=== PATIENT | male | born 1965 | race African-American/Black ===

== ENCOUNTER 2018-02-28 09:12 | Inpatient (IN) | payer OTHER ==
[~2018-02-28] VITALS: Ht 190.5 cm; Wt 127.0 kg
[2018-02-28] MEDS ORDERED: IPRATROPIUM BROMIDE (0.02%) 0.5MG/2.5ML NEB HHN STA (09:22)
[2018-02-28] MEDS ORDERED: METHYLPREDNISOLONE SOD SUCC 125 MG/2 ML VIAL IV STA (09:22)
[2018-02-28] MEDS ORDERED: ALBUTEROL (0.083%) 2.5MG/3ML NEB ONE (09:29)
[2018-02-28] MEDS ORDERED: IPRATROPIUM BROMIDE (0.02%) 0.5MG/2.5ML NEB ONE (09:30)
[2018-02-28] MEDS ORDERED: ALBUTEROL (0.083%) 2.5MG/3ML NEB HHN SCH (09:30)
[2018-02-28] MEDS ORDERED: MAGNESIUM 2 G PREMIX 50 ML IV ONE (09:30)
[2018-02-28 09:55] LABS: CHLORIDE 99 mEq/L (98-107)
[2018-02-28 09:57] LABS: BG DEOXYHEMOGLOBIN 0.4 % (0.0-5.0); BG FRACTION INSPIRED OXYGEN 50; BG HCO3 ACT 23.9 mmol/L (22.0-26.0); BG OXYGEN SATURATION 99.6 % (92.0-98.5); BG OXYHEMOGLOBIN 98.6 % (94.0-97.0); BG PCO2 40.4 mmHg (35.0-45.0); BG PH 7.389 (7.350-7.450); BG PO2 219.5 mmHg (75.0-100.0); BG SAMPLE SITE RIGHT RADIAL; BG TOTAL HEMOGLOBIN 9.7 g/dL (12.0-18.0)
[2018-02-28 10:04] LABS: BASOPHILS % 0.4 % (0.0-2.0); EOSINOPHILS % 1.6 % (0.0-5.0); HEMATOCRIT. 28.8 % (42.0-52.0); HEMOGLOBIN. 9.1 g/dL (14.0-18.0); LYMPHOCYTES % 34.3 % (20.0-50.0); MEAN CORPUSCULAR HEMOGLOBIN 28.8 pg (28.0-32.0); MEAN PLATELET VOLUME 8.6 fl (7.4-10.4); MONOCYTES % 10.5 % (2.0-8.0); NEUTROPHILS % 53.2 % (40.0-76.0); PLATELET 258 x1000/uL (130-400); RED BLOOD CELL COUNT 3.17 mill/uL (4.7-6.1); RED CELL DISTRIBUTION WIDTH 18.9 % (11.6-14.6)
[2018-02-28] MEDS ORDERED: MORPHINE SULFATE 4 MG/ML CPJ (NOT FOR IM USE) IV ONE (11:45)
[2018-02-28] MEDS ORDERED: GUAIFENESIN 200MG/10ML SUGAR FREE UDC PO PRN (12:00)
[2018-02-28] MEDS ORDERED: LORAZEPAM 2MG/ML CPJ IV PRN (12:00)
[2018-02-28] MEDS ORDERED: ENOXAPARIN 40MG/0.4ML SYR SUBCUT SCH (12:00)
[2018-02-28] MEDS ORDERED: DOCUSATE SODIUM 100MG CAPSULE PO PRN (12:00)
[2018-02-28] MEDS ORDERED: ACETAMINOPHEN 325MG TABLET PO PRN (12:00)
[2018-02-28] MEDS ORDERED: CLONIDINE 0.1MG TABLET PO PRN (12:00)
[2018-02-28] MEDS ORDERED: MAGNESIUM/ALUMINUM HYDROXIDE/SIMETHICONE 30ML UDC PO PRN (12:00)
[2018-02-28] MEDS ORDERED: DIPHENHYDRAMINE 50MG/ML VIAL IV PRN (12:00)
[2018-02-28] MEDS ORDERED: IPRATROPIUM/ALBUTEROL 0.5-3(2.5)MG/3ML NEB INH PRN (12:00)
[2018-02-28] MEDS: MORPHINE SULFATE 4 MG/ML CPJ (NOT FOR IM USE) IV PRN ×3 (14:09→22:31)
[2018-02-28] MEDS: ONDANSETRON HCL 4MG/2ML INJ IV PRN ×2 (14:09→18:14)
[2018-02-28] MEDS: HYDROCODONE/ACETAMINOPHEN 5/325MG TABLET PO PRN ×2 (14:09→18:14)
[2018-02-28 21:29] LABS: CLARITY URINE CLOUDY (CLEAR); COLOR URINE YELLOW (YELLOW); KETONES URINE NEGATIVE (NEGATIVE); LEUKOCYTE ESTERASE URINE 1+ (NEGATIVE); NITRITE URINE NEGATIVE (NEGATIVE); OCCULT BLOOD URINE 1+ (NEGATIVE); PROTEIN URINE 4+ (NEGATIVE); UROBILINOGEN URINE 0.2 E.U./dL (0.2-1.0)
[2018-02-28 21:51] LABS: *AMPHETAMINES SCREEN URINE NEGATIVE (NEGATIVE); *BARBITURATES SCREEN URINE NEGATIVE (NEGATIVE); *BENZODIAZEPINES SCREEN URINE NEGATIVE (NEGATIVE); *COCAINE SCREEN URINE NEGATIVE (NEGATIVE)
[2018-02-28 21:52] LABS: CANNABINOID URINE SCREEN NEGATIVE (NEGATIVE); METHADONE URINE SCREEN NEGATIVE (NEGATIVE); OPIATES URINE SCREEN PRESUMTIVE POSITIVE (NEGATIVE); PHENCYCLIDINE URINE SCREEN NEGATIVE (NEGATIVE)
[2018-02-28 22:05] VITALS: BP 178/75
[2018-02-28] MEDS ORDERED: NA PHOS,M-B/NA PHOS,DI-BA ENEMA 118ML PR PRN (22:30)
[2018-02-28] MEDS: HYDRALAZINE HCL 50MG TABLET PO SCH (22:30)
[2018-02-28] MEDS: LOSARTAN POTASSIUM 50 MG TABLET PO SCH (22:30)
[2018-02-28] MEDS: AMLODIPINE 5MG TABLET PO SCH (22:30)
[2018-02-28] MEDS: ENOXAPARIN 30MG/0.3ML SYR SUBCUT SCH (23:26)
[2018-02-28] MEDS ORDERED: EPOETIN ALFA 10000UNITS/ML VIAL SUBCUT SCH (23:30)
[2018-02-28] MEDS ORDERED: ACETYLCYSTEINE 100MG/ML 10% VIAL 4ML INH SCH (23:45)
[2018-02-28] MEDS ORDERED: FURO-152 PO (23:48)
[2018-02-28] MEDS ORDERED: HYDR4TAB4 PO (23:49)
[2018-02-28] MEDS ORDERED: INSU100I28 SQ (23:50)
[2018-02-28] MEDS ORDERED: LANTUSUD SUBCUT (23:51)
[2018-03-01] VITALS (8 sets, daily range): BP systolic 122–180; BP diastolic 59–94
[2018-03-01] MEDS ORDERED: HEPARIN SODIUM 1,000 UNIT/1ML VIAL IV NR (01:30)
[2018-03-01] MEDS: ONDANSETRON HCL 4MG/2ML INJ IV PRN (02:11)
[2018-03-01] MEDS: MORPHINE SULFATE 4 MG/ML CPJ (NOT FOR IM USE) IV PRN (02:24)
[2018-03-01] MEDS: IPRATROPIUM/ALBUTEROL 0.5-3(2.5)MG/3ML NEB HHN SCH ×5 (04:16→21:14)
[2018-03-01] MEDS ORDERED: HYDROMORPHONE HCL 4MG TABLET PO PRN (06:00)
[2018-03-01] MEDS ORDERED: DEXTROSE 50% WATER 50ML SYRINGE IV PRN (06:00)
[2018-03-01] MEDS: BLOOD SUGAR DIAGNOSTIC STRIP TEST SCH ×4 (06:24→21:00)
[2018-03-01] MEDS: HYDRALAZINE HCL 50MG TABLET PO SCH ×3 (06:28→21:13)
[2018-03-01] MEDS: INSULIN LISPRO 100 UNITS/ML SUBCUT SCH ×4 (06:31→21:17)
[2018-03-01] MEDS ORDERED: NON FORMULARY PATIENT HOME MED XX PRN (08:00)
[2018-03-01] MEDS ORDERED: POTASSIUM CHLORIDE 20MEQ TABLET SR PO ONE (08:15)
[2018-03-01] MEDS ORDERED: POTASSIUM CHLORIDE 20MEQ TABLET SR PO NR (08:30)
[2018-03-01] MEDS: LOSARTAN POTASSIUM 50 MG TABLET PO SCH ×2 (08:42→20:58)
[2018-03-01] MEDS: ENOXAPARIN 30MG/0.3ML SYR SUBCUT SCH ×2 (08:42→20:59)
[2018-03-01] MEDS: AMLODIPINE 5MG TABLET PO SCH ×2 (08:42→20:58)
[2018-03-01] MEDS ORDERED: ASPIRIN 81MG EC TABLET PO SCH (09:00)
[2018-03-01 10:36] LABS: BASOPHILS % 0.4 % (0.0-2.0); EOSINOPHILS % 0.5 % (0.0-5.0); HEMATOCRIT. 26.5 % (42.0-52.0); HEMOGLOBIN. 8.4 g/dL (14.0-18.0); LYMPHOCYTES % 29.6 % (20.0-50.0); MEAN CORPUSCULAR HEMOGLOBIN 28.9 pg (28.0-32.0); MEAN CORPUSCULAR VOLUME 90.9 fL (80.0-94.0); MEAN PLATELET VOLUME 8.5 fl (7.4-10.4); MONOCYTES % 11.7 % (2.0-8.0); NEUTROPHILS % 57.8 % (40.0-76.0); PLATELET 245 x1000/uL (130-400); RED BLOOD CELL COUNT 2.92 mill/uL (4.7-6.1); RED CELL DISTRIBUTION WIDTH 18.6 % (11.6-14.6)
[2018-03-01 11:23] LABS: CHLORIDE 101 mEq/L (98-107)
[2018-03-01 11:40] LABS: HEPATITIS B SURFACE ANTIGEN NEGATIVE
[2018-03-01 11:41] LABS: LDL CHOLESTEROL 68 mg/dL (5-100)
[2018-03-01 11:44] LABS: HDL CHOLESTEROL 68 mg/dL (40-59)
[2018-03-01] MEDS: HYDROMORPHONE HCL/PF 2MG/ML CPJ IV PRN ×3 (17:06→21:39)
== END 2018-03-02 00:05 | disposition short-term general hospital (02) | DRG 640 ==
LOC: ER 09:23 → 8WST 11:47 → EDBEDREQSVC 11:52 → EDBEDREQ 11:52 → EDBEDREQTM 11:52 → ENRESERV 21:09
PROVIDERS: ADMIT Internal Medicine; ATTEND Internal Medicine
PROC: 5A1D70Z Performance of Urinary Filtration, Intermittent, Less than 6 Hours Per Day (ICD-10-PCS; principal; 2018-02-28)
DX: E87.70 Fluid overload, unspecified (principal); E43 Unspecified severe protein-calorie malnutrition; J96.00 Acute respiratory failure, unspecified whether with hypoxia or hypercapnia; N18.6 End stage renal disease; I13.2 Hypertensive heart and chronic kidney disease with heart failure and with stage 5 chronic kidney disease, or end stage renal disease; M86.9 Osteomyelitis, unspecified; E87.1 Hypo-osmolality and hyponatremia; D63.1 Anemia in chronic kidney disease; E11.22 Type 2 diabetes mellitus with diabetic chronic kidney disease; E11.43 Type 2 diabetes mellitus with diabetic autonomic (poly)neuropathy; E11.649 Type 2 diabetes mellitus with hypoglycemia without coma; E11.51 Type 2 diabetes mellitus with diabetic peripheral angiopathy without gangrene; E11.21 Type 2 diabetes mellitus with diabetic nephropathy; E11.69 Type 2 diabetes mellitus with other specified complication; E66.01 Morbid (severe) obesity due to excess calories; E78.5 Hyperlipidemia, unspecified; E87.6 Hypokalemia; G89.29 Other chronic pain; K31.84 Gastroparesis; Z91.15 Patient's noncompliance with renal dialysis; Z79.4 Long term (current) use of insulin; Z89.431 Acquired absence of right foot; Z89.432 Acquired absence of left foot; Z99.2 Dependence on renal dialysis; Z68.35 Body mass index [BMI] 35.0-35.9, adult; Z82.49 Family history of ischemic heart disease and other diseases of the circulatory system; Z83.3 Family history of diabetes mellitus
CPT/HCPCS: 36415; 36600; 71045; 78580; 80048; 80061; 80305; 82375; 82805; 82962; 83735; 83880; 84439; 84443; 84484; 86803; 87340; 87804; 93005; 93306; 93970; 94640; 94644; 96365; 96366; 96375; 97162; 97166; 99285; C1893; J0885; J1170; J1644; J1650; J1815; J2270; J2405; J2930; J3475; J7608; J7611; J7620

== ENCOUNTER 2019-03-14 08:28 | Emergency (ER) | payer OTHER ==
[~2019-03-14] VITALS: Ht 190.5 cm; Wt 132.0 kg
[~2019-03-14 08:28] MED LIST: FURO-152 PO; HYDR4TAB4 PO; LANTUSUD SUBCUT
[2019-03-14] MEDS ORDERED: MORPHINE SULFATE 4 MG/ML CPJ (NOT FOR IM USE) IV STA (08:42)
[2019-03-14] MEDS ORDERED: FAMOTIDINE 20MG/2ML VIAL IV STA (08:42)
[2019-03-14] MEDS ORDERED: SODIUM CHLORIDE 0.9% 1,000 ML IV ONE (08:42)
[2019-03-14] MEDS ORDERED: ONDANSETRON HCL 4MG/2ML INJ IV STA (08:42)
[2019-03-14] MEDS ORDERED: LORAZEPAM 2MG/ML CPJ IV ONE (08:45)
[2019-03-14 09:41] LABS: BASOPHILS % 0.5 % (0.0-2.0); EOSINOPHILS % 0.4 % (0.0-5.0); HEMOGLOBIN. 11.5 g/dL (14.0-18.0); LYMPHOCYTES % 24.2 % (20.0-50.0); MEAN CORPUSCULAR HEMOGLOBIN 26.9 pg (28.0-32.0); MEAN CORPUSCULAR VOLUME 82.1 fL (80.0-94.0); MEAN PLATELET VOLUME 8.8 fl (7.4-10.4); MONOCYTES % 9.1 % (2.0-8.0); NEUTROPHILS % 65.8 % (40.0-76.0); PLATELET 332 x1000/uL (130-400); RED BLOOD CELL COUNT 4.27 mill/uL (4.7-6.1)
[2019-03-14 09:48] LABS: CHLORIDE 90 mEq/L (98-107); PROTHROMBIN TIME 10.5 sec (9.6-11.0)
[2019-03-14 09:52] LABS: ETHANOL BLOOD < 10 mg/dL
[2019-03-14] MEDS ORDERED: INSULIN REGULAR (HUMULIN R) 300UNITS/3ML IV ONE (10:15)
[2019-03-14] MEDS ORDERED: MORPHINE SULFATE 10 MG/ML CPJ IV ONE (10:30)
[2019-03-14 11:12] VITALS: BP 158/62
== END 2019-03-14 12:30 | disposition short-term general hospital (02) ==
LOC: ER 08:49
DX: R10.13 Epigastric pain (principal); R11.10 Vomiting, unspecified; E11.43 Type 2 diabetes mellitus with diabetic autonomic (poly)neuropathy; K31.84 Gastroparesis; E11.65 Type 2 diabetes mellitus with hyperglycemia; I10 Essential (primary) hypertension; Z79.4 Long term (current) use of insulin; Z79.899 Other long term (current) drug therapy
CPT/HCPCS: 36415; 71045; 80053; 80320; 83690; 84484; 85025; 85610; 93005; 96361; 96374; 96375; 96376; 99291; J1815; J2060; J2270; J2405; J3490; J7030; G0480

== ENCOUNTER 2019-03-15 06:38 | Emergency (ER) | payer OTHER ==
[~2019-03-15] VITALS: Ht 182.9 cm; Wt 132.0 kg
[2019-03-15] MEDS ORDERED: MORPHINE SULFATE 4 MG/ML CPJ (NOT FOR IM USE) IV STA (08:31)
[2019-03-15] MEDS ORDERED: ONDANSETRON HCL 4MG/2ML INJ IV STA (08:31)
[2019-03-15] MEDS ORDERED: LORAZEPAM 2MG/ML CPJ IV ONE (09:00)
[2019-03-15 09:07] LABS: CHLORIDE 91 mEq/L (98-107)
[2019-03-15 09:12] LABS: BASOPHILS % 0.6 % (0.0-2.0); EOSINOPHILS % 1.3 % (0.0-5.0); HEMATOCRIT. 35.6 % (42.0-52.0); HEMOGLOBIN. 11.6 g/dL (14.0-18.0); LYMPHOCYTES % 30.5 % (20.0-50.0); MEAN CORPUSCULAR HEMOGLOBIN 26.8 pg (28.0-32.0); MEAN CORPUSCULAR VOLUME 82.7 fL (80.0-94.0); MEAN PLATELET VOLUME 8.9 fl (7.4-10.4); MONOCYTES % 8.4 % (2.0-8.0); NEUTROPHILS % 59.2 % (40.0-76.0); PLATELET 325 x1000/uL (130-400); RED BLOOD CELL COUNT 4.31 mill/uL (4.7-6.1); RED CELL DISTRIBUTION WIDTH 15.8 % (11.6-14.6)
[2019-03-15] MEDS ORDERED: DICYCLOMINE 10 MG/5 ML ORAL SYR PO ONE (09:15)
[2019-03-15] MEDS ORDERED: VISCOUS LIDOCAINE 2% 15 ML UDC PO ONE (09:15)
[2019-03-15] MEDS ORDERED: MAGNESIUM/ALUMINUM HYDROXIDE/SIMETHICONE 30ML UDC PO ONE (09:15)
[2019-03-15] MEDS ORDERED: FAMOTIDINE 20MG/2ML VIAL IV ONE (09:15)
[2019-03-15] MEDS ORDERED: VANCOMYCIN 1 G PREMIX 200 ML IV SCH (10:15)
[2019-03-15] MEDS ORDERED: PIPERACILLIN/TAZOBACTAM 3.375GM/50ML PREMIX IV ONE (10:15)
[2019-03-15] MEDS ORDERED: SODIUM CHLORIDE 0.9% 1,000 ML IV ONE (10:29)
[2019-03-15] MEDS ORDERED: PIPERACILLIN/TAZ 3.375G PREMIX 50 ML IV ONE (10:30)
[2019-03-15] MEDS ORDERED: FENTANYL CITRATE/PF 50MCG/ML 2ML VIAL IV ONE (10:30)
[2019-03-15] MEDS ORDERED: IOHEXOL-300 100 ML BOTTLE ONE (11:03)
[2019-03-15 11:35] VITALS: BP 176/75
[2019-03-15 11:37] LABS: CLARITY URINE CLEAR (CLEAR); COLOR URINE YELLOW (YELLOW); KETONES URINE 1+ (NEGATIVE); LEUKOCYTE ESTERASE URINE NEGATIVE (NEGATIVE); NITRITE URINE NEGATIVE (NEGATIVE); OCCULT BLOOD URINE NEGATIVE (NEGATIVE); PROTEIN URINE 2+ (NEGATIVE); SPECIFIC GRAVITY URINE 1.033 (1.005-1.030); UROBILINOGEN URINE 0.2 E.U./dL (0.2-1.0)
== END 2019-03-15 12:36 | disposition short-term general hospital (02) ==
LOC: ER 06:38
DX: R10.84 Generalized abdominal pain (principal); L03.115 Cellulitis of right lower limb; E87.1 Hypo-osmolality and hyponatremia; E11.22 Type 2 diabetes mellitus with diabetic chronic kidney disease; I12.9 Hypertensive chronic kidney disease with stage 1 through stage 4 chronic kidney disease, or unspecified chronic kidney disease; N18.9 Chronic kidney disease, unspecified; Z98.890 Other specified postprocedural states; Z79.4 Long term (current) use of insulin; Z89.432 Acquired absence of left foot; Z89.431 Acquired absence of right foot
CPT/HCPCS: 36415; 74177; 80053; 81003; 83690; 85025; 87040; 87070; 87086; 87205; 96365; 96368; 96375; 99285; J2060; J2270; J2405; J2543; J3010; J3370; J3490; J7030; Q9967

== ENCOUNTER 2021-05-17 06:41 | Emergency (ER) | payer OTHER ==
[~2021-05-17] VITALS: Ht 190.5 cm; Wt 127.0 kg
[2021-05-17] MEDS ORDERED: KETOROLAC 60MG/2ML VIAL IM ONE (07:15)
[2021-05-17 07:58] LABS: BASOPHILS % 0.5 % (0.0-2.0); EOSINOPHILS % 3.1 % (0.0-5.0); HEMATOCRIT. 36.8 % (42.0-52.0); HEMOGLOBIN. 12.1 g/dL (14.0-18.0); LYMPHOCYTES % 24.3 % (20.0-50.0); MEAN CORPUSCULAR HEMOGLOBIN 27.2 pg (28.0-32.0); MEAN CORPUSCULAR VOLUME 82.7 fL (80.0-94.0); MEAN PLATELET VOLUME 8.4 fl (7.4-10.4); MONOCYTES % 7.3 % (2.0-8.0); NEUTROPHILS % 64.8 % (40.0-76.0); PLATELET 279 x1000/uL (130-400); RED BLOOD CELL COUNT 4.45 mill/uL (4.7-6.1); RED CELL DISTRIBUTION WIDTH 15.3 % (11.6-14.6)
[2021-05-17 08:00] LABS: CHLORIDE 97 mEq/L (98-107)
[2021-05-17] MEDS ORDERED: MORPHINE SULFATE 10 MG/ML CPJ IM ONE (09:30)
[2021-05-17 09:46] VITALS: BP 158/87
== END 2021-05-17 09:46 | disposition home or self-care (01) ==
LOC: ER 06:41
DX: R10.9 Unspecified abdominal pain (principal); E11.9 Type 2 diabetes mellitus without complications
CPT/HCPCS: 36415; 74176; 80053; 83690; 84484; 85025; 93005; 96372; 99285; J1885; J2270